=== PATIENT | female | born 1995 ===

== ENCOUNTER 2018-08-26 21:55 | Emergency (ER) | payer SELFPAY ==
[2018-08-26] MEDS ORDERED: Sodium Chloride 0.9% 1,000 ML IV ONE (22:09)
--- NOTE | 2018-08-26 22:09 | C.PDOC ---
History Of Present Illness Patient presents with increased frequency urination, dysuria radiating into the back over the last 3 days. No f/c/n/v. tolerating po Time Seen by Provider: 08/26/18 22:08 Chief Complaint (Nursing): Back Pain History Per: Patient History/Exam Limitations: no limitations Onset/Duration Of Symptoms: Days (3) Current Symptoms Are (Timing): Still Present Severity: Moderate Pain Scale Rating Of: 4 Recent travel outside of the [place]: No Additional History Per: Patient Past Medical History Reviewed: Historical Data, Nursing Documentation, Vital Signs Vital Signs: Last Vital Signs Temp 97.9 F 08/26/18 21:59 Pulse 9 L 08/26/18 21:59 Resp 16 08/26/18 21:59 BP 132/84 08/26/18 21:59 Pulse Ox 100 08/26/18 21:59 Family History: States: No Known Family Hx - Social History Hx Alcohol Use: No Hx Substance Use: No Review Of Systems Constitutional: Negative for: Fever, Chills Genitourinary: Positive for: Dysuria, Frequency. Negative for: Vaginal Bleeding, Pelvic Pain Musculoskeletal: Positive for: Back Pain Skin: Negative for: Rash Neurological: Negative for: Weakness Psych: Negative for: Anxiety Physical Exam - Physical Exam Appears: Non-toxic, No Acute Distress Oral Mucosa: Moist Cardiovascular: Rhythm Regular Respiratory: No Rales, No Rhonchi, No Wheezing Gastrointestinal/Abdominal: Soft, No Tenderness, No Distention Back: CVA Tenderness Extremity: Normal ROM Extremity: Bilateral: Atraumatic, Normal ROM Neurological/Psych: Oriented x3 Gait: Steady ED Course And Treatment - Laboratory Results Result Diagrams: 08/26/18 22:23 08/26/18 22:23 O2 Sat by Pulse Oximetry: 100 Pulse Ox Interpretation: Normal Reevaluation Time: 01:20 Reassessment Condition: Improved Disposition Counseled Patient/Family Regarding: Studies Performed, Diagnosis, Need For Followup, Rx Given - Disposition Referrals: [facility] [Outside] [facility] [Outside] Disposition: HOME/ ROUTINE Disposition Time: 22:09 Condition: FAIR Additional Instructions: Por favor regrese si los sntomas recurren. Prescriptions: Naproxen [Naprosyn] 1 tab PO BID PRN #25 tab PRN Reason: Pain Nitrofurantoin Macrocrystals [Macrobid] 1 cap PO BID #14 cap Instructions: Urinary Tract Infection, Adult (DC) Forms: [employer] (Namibian) Print Language: AZERBAIJANI - Clinical Impression Clinical Impression: UTI (urinary tract infection)
--- NOTE | 2018-08-26 22:09 | C.PDOC ---
Time Seen by Provider: 08/26/18 22:08 Chief Complaint (Nursing): Back Pain Past Medical History Vital Signs: Last Vital Signs Temp 97.9 F 08/26/18 21:59 Pulse 9 L 08/26/18 21:59 Resp 16 08/26/18 21:59 BP 132/84 08/26/18 21:59 Pulse Ox 100 08/26/18 21:59 - Social History Hx Alcohol Use: No Hx Substance Use: No ED Course And Treatment O2 Sat by Pulse Oximetry: 100 Disposition Counseled Patient/Family Regarding: Studies Performed, Diagnosis - Disposition Disposition Time: 22:08
[2018-08-26 22:19] VITALS: RESP 16; O2SAT 100
[2018-08-26 22:25] LABS: BASO % 0.4 % (0.0-2.0); EOS # 0.1 K/uL (0.0-0.7); EOS % 1.2 % (0.0-4.0); HEMOGLOBIN 14.2 g/dL (11.0-16.0); LYMPH # 1.7 K/uL (1.0-4.3); LYMPH % 17.9 % (20.0-40.0); MEAN CELL VOLUME 89.5 fL (81.0-99.0); MEAN CORPUSCULAR HEMOGLOBIN 30.6 pg (27.0-31.0); MEAN CORPUSCULAR HGB CONC 34.2 g/dL (33.0-37.0); MONO # 0.8 K/uL (0.0-0.8); MONO % 8.3 % (0.0-10.0); NEUT # 6.8 K/uL (1.8-7.0); NEUT % 72.2 % (50.0-75.0); RBC 4.65 Mil/uL (3.80-5.20); RED CELL DISTRIBUTION WIDTH 13.5 % (11.5-14.5); WHITE BLOOD COUNT 9.5 K/uL (4.8-10.8)
[2018-08-26 22:28] LABS: HCG,QUALITATIVE URINE NEGATIVE (NEGATIVE)
[2018-08-26 22:30] LABS: SQUAMOUS EPITHIAL 1 /hpf (0-5); URINE BACTERIA FEW (<OCC); URINE BILIRUBIN NEGATIVE (NEGATIVE); URINE BLOOD 2+ (NEGATIVE); URINE CLARITY Hazy (Clear); URINE COLOR Yellow (YELLOW); URINE GLUCOSE (UA) NORMAL (Normal); URINE LEUKOCYTE ESTERASE 2+ Leu/uL (Negative); URINE PROTEIN NEGATIVE (NEGATIVE); URINE UROBILINOGEN NORMAL mg/dL (0.2-1.0)
[2018-08-26] MEDS ORDERED: cefTRIAXone IV 1 gm in Dextros 50 ML IVPB ONE (22:32)
[2018-08-26 22:41] LABS: ALB/GLOB RATIO 1.3 (1.0-2.1); ALBUMIN 4.7 g/dL (3.5-5.0); ALT/SGPT 22 U/L (9-52); AST/SGOT 25 U/L (14-36); BLOOD UREA NITROGEN 14 mg/dL (7-17); CALCIUM 9.7 mg/dl (8.6-10.4); GFR NON-AFRICAN AMERICAN > 60; LIPASE 216 U/L (23-300)
[2018-08-27] MEDS ORDERED: Iodixanol 320 MG/ML 100 ML BOTTLE IV ONE (00:17)
[2018-08-27 00:45] VITALS: BP 115/73; PULSE 84; TEMP 98.5
--- NOTE | 2018-08-27 08:22 | CT ---
Date of service: 08/27/2018 PROCEDURE: CT Abdomen and Pelvis with contrast HISTORY: pyelo COMPARISON: None TECHNIQUE: CT scan of the abdomen and pelvis was performed after administration of intravenous contrast. Oral contrast was not administered. Coronal and sagittal reformatted images were obtained. Contrast dose: Radiation dose: Total exam DLP = 324.35 mGy-cm. This CT exam was performed using one or more of the following dose reduction techniques: Automated exposure control, adjustment of the mA and/or kV according to patient size, and/or use of iterative reconstruction technique. FINDINGS: LOWER THORAX: The visualized lungs are clear. LIVER: Mild hepatomegaly. Normal homogeneous enhancement. No gross lesion or ductal dilatation. GALLBLADDER AND BILE DUCTS: Well distended. No calcified gallstones, wall thickening or pericholecystic fluid. PANCREAS: Normal in size with homogeneous enhancement. No gross lesion or ductal dilatation. SPLEEN: Normal in size and appearance. ADRENALS: No discrete nodule. KIDNEYS AND URETERS: Normal in size with homogeneous enhancement. There is mild fullness in the right collecting system and mild urothelial enhancement in the renal pelvis and proximal ureter. VASCULATURE: No aortic aneurysm. There are no aortic atherosclerotic calcifications or mural plaque present. BOWEL: Evaluation of the bowel is limited in the absence of oral contrast. There is fluid in the stomach. The proximal small bowel loops are normal in caliber. There is mild dilatation of fluid-filled distal small bowel with fecalization of bowel contents there is stool the colon is grossly normal in appearance. No bowel wall thickening or obstruction. APPENDIX: Normal appendix. PERITONEUM: No free fluid. No free air. LYMPH NODES: No enlarged lymph nodes. BLADDER: The urinary bladder is well distended. There is mild circumferential mural thickening of the urinary bladder. REPRODUCTIVE: The uterus is normal in size. BONES: No acute fracture. Within normal limits for the patient's age. OTHER FINDINGS: None. IMPRESSION: No CT evidence for acute pyelonephritis. Mild fullness in the right renal collecting system and ureteral enhancement in the right renal pelvis and proximal ureteral along with mild circumferential mural thickening of the bladder wall could represent cystitis and ureteritis. Please correlate with urine analysis Constipation. No evidence of bowel obstruction. A preliminary report was provided by [employer]
== END 2018-08-27 01:29 | disposition home or self-care (01) ==
LOC: C.ER 21:55
DX: N39.0 Urinary tract infection, site not specified (principal)
CPT/HCPCS: 74177; 80053; 81001; 83690; 84703; 85025; 96361; 96374; 96375; 99284; J0696; J1885; J7030; Q9967